=== PATIENT | male | born 1980 | race Caucasian/White ===

== ENCOUNTER 2017-04-07 10:41 | Inpatient (IN) | payer OTHER ==
[2017-04-07] MEDS ORDERED: NS 1,000 ML IV ONE ×2 (11:40→14:45)
[2017-04-07 11:44] LABS: % IMMATURE GRANULYOCYTES 0.1 % (0.0-1.1); ABSOLUTE IMMATURE GRANULOCYTES 0.01 10^3/uL (0.00-0.10); ADD DIFF? NO; ADD MORPH? NO; ADD SCAN? NO; ATYPICAL LYMPHOCYTE FLAG 0 (0-99); FRAGMENT RBC FLAG 0 (0-99); HEMATOCRIT 42.5 % (40.0-51.0); HEMOGLOBIN 14.9 g/dL (13.7-17.5); LEFT SHIFT FLG 0 (0-99); LIPEMIA HEMOLYSIS FLAG 90 (0-99); MEAN CELL HEMOGLOBIN 28.3 pg (27.9-34.1); MEAN CELL HEMOGLOBIN CONCENTR. 35.1 g/dL (32.4-36.7); MEAN CELL VOLUME 80.6 fL (81.5-99.8); MEAN PLATELET VOLUME 8.9 fL (8.7-11.7); PLATELET CLUMPS FLAG 0 (0-99); PLATELET COUNT 297 10^3/uL (150-400); RED BLOOD CELL COUNT 5.27 10^6/uL (4.40-6.38); RED CELL DISTRIBUTION WIDTH 13.2 % (11.5-15.2)
[2017-04-07 12:06] LABS: ANION GAP 15 mEq/L (8-16); CALCIUM 9.5 mg/dL (8.5-10.4); CARBON DIOXIDE 29 mEq/l (22-31); CHLORIDE 98 mEq/L (97-110); CREATININE 1.2 mg/dL (0.7-1.3); GLOMERULAR FILTRATION RATE > 60; GLUCOSE 88 mg/dL (70-100); POTASSIUM 4.5 mEq/L (3.5-5.2); SODIUM 142 mEq/L (134-144)
[2017-04-07 12:18] LABS: WBC, SYNOVIAL FLUID 89896 /mm3 (0-150)
[2017-04-07] MEDS ORDERED: VANCOMYCIN HCL/NORMAL SALINE 250 ML IV ONE (12:52)
[2017-04-07 13:04] LABS: CRYSTALS, SYNOVIAL FLUID NONE SEEN (NONE SEEN)
[2017-04-07 13:40] LABS: GLUCOSE, SYNOVIAL FLUID 62 mg/dL (55-113)
--- NOTE | 2017-04-07 13:51 | EDPHY ---
H & P Stated Complaint: Left knee swelling, poss infection, recent surgery - 03/19/17 Time Seen by Provider: 04/07/17 10:58 HPI/ROS: Chief complaint: Left knee swelling History of present illness: This is a 36-year-old male who presents to the emergency department for evaluation of left knee swelling. Patient has a significant recent history in regards to his left knee. In November of this year he fell and fractured his tibia and required surgery to repair it. The surgery was performed at [facility] by [facility], Dr. Monique. A few weeks ago he developed a wounds on the knee and was diagnosed with abscesses. These were incised and drained by his physician. Cultures were obtained which showed Staph Aureus. He was started on Keflex. He has completed the course of Keflex. Since then he has had increasing pain and swelling in his knee. It makes it difficult to move the knee. In addition preceding the onset of the pain and swelling in the knee he had fevers up to 102 degrees F. Review of systems: A 10 point review of systems was obtained and other than described above was negative - Personal History Current Tetanus Diphtheria and Acellular Pertussis (TDAP): Yes - Medical/Surgical History Hx Asthma: No Hx Chronic Respiratory Disease: No Hx Diabetes: No Hx Cardiac Disease: No Hx Renal Disease: No Hx Cirrhosis: No Hx Alcoholism: No Hx HIV/AIDS: No Hx Splenectomy or Spleen Trauma: No Other PMH: 3 x left knee surgeries. - Social History Smoking Status: Never smoked - Physical Exam Exam: General Appearance: Alert, nontoxic. Eyes: Pupils equal and round no pallor or injection. ENT, Mouth: Mucous membranes moist. Respiratory: There are no retractions, lungs are clear to auscultation. Cardiovascular: Regular rate and rhythm. Gastrointestinal: Abdomen is soft and non tender, no masses, bowel sounds normal. Neurological: Alert and oriented. Strength and sensation intact and symmetrical. Skin: Warm and dry, no rashes. Musculoskeletal: Neck is supple non tender. Left knee is erythematous with edema. It is warm to touch. Patient has decreased range of motion with associated pain. Psychiatric: Patient is oriented X 3, there is no agitation. Constitutional: Initial Vital Signs Temperature (C) 36.6 C 04/07/17 10:43 Heart Rate 107 H 04/07/17 10:43 Respiratory Rate 16 04/07/17 10:43 Blood Pressure 128/72 H 04/07/17 10:43 O2 Sat (%) 97 04/07/17 10:43 O2 Delivery Mode Room Air Allergies/Adverse Reactions: No Known Allergies Allergy (Unverified 04/07/17 10:47) Home Medications: Medication Instructions Recorded NK [No Known Home Meds] 04/07/17 Medical Decision Making ED Course/Re-evaluation: Patient is discussed with my secondary supervising physician Dr. Jeny Daly. Patient presents to the emergency department reporting fevers this weekend of 102 degrees F, now with redness, swelling and warmth to his left knee. Arthrocentesis was obtained and concerning for septic arthritis. I have discussed transferring the patient back to [facility] to the care of his orthopedic surgeon Dr. Monique. He states he does not want to continue care with Dr. Monique. He states to me that he wants to fire Dr. Monique as he does not believe he has been cared for properly. He is asking if he can stay here. I have consulted with our orthopedic group Dr. Ponce. He has kindly agreed to see this patient. He will take the patient to the operating room this afternoon for washout. The patient will be admitted to the hospitalist service, Dr. Reuben Thompson for further evaluation and care. Dr. Terry Wong of Infectious Disease is consulted, he recommends starting patient on vancomycin and he will see the patient. The plan has been discussed with the patient who voiced understanding and agreement with it. Differential Diagnosis: Included but not limited to cellulitis, bursitis, septic arthritis, gouty arthritis, displacement of hardware, traumatic injury - Data Points Laboratory Results: Laboratory Results 04/07/17 11:36 04/07/17 11:36 04/07/17 04/07/17 04/07/17 11:36 11:36 11:36 WBC 7.25 10^3/uL 10^3/uL (3.80-9.50) RBC 5.27 10^6/uL 10^6/uL (4.40-6.38) Hgb 14.9 g/dL g/dL (13.7-17.5) Hct 42.5 % % (40.0-51.0) MCV 80.6 fL L fL (81.5-99.8) MCH 28.3 pg pg (27.9-34.1) MCHC 35.1 g/dL g/dL (32.4-36.7) RDW 13.2 % % (11.5-15.2) Plt Count 297 10^3/uL 10^3/uL (150-400) MPV 8.9 fL fL (8.7-11.7) Neut % (Auto) 73.4 % % (39.3-74.2) Lymph % (Auto) 13.0 % L % (15.0-45.0) Todd % (Auto) 12.1 % % (4.5-13.0) Eos % (Auto) 0.8 % % (0.6-7.6) Baso % (Auto) 0.6 % % (0.3-1.7) Nucleat RBC Rel Count 0.0 % % (0.0-0.2) Absolute Neuts (auto) 5.32 10^3/uL 10^3/uL (1.70-6.50) Absolute Lymphs (auto) 0.94 10^3/uL L 10^3/uL (1.00-3.00) Absolute Monos (auto) 0.88 10^3/uL H 10^3/uL (0.30-0.80) Absolute Eos (auto) 0.06 10^3/uL 10^3/uL (0.03-0.40) Absolute Basos (auto) 0.04 10^3/uL 10^3/uL (0.02-0.10) Absolute Nucleated RBC 0.00 10^3/uL 10^3/uL (0-0.01) Immature Gran % 0.1 % % (0.0-1.1) Immature Gran # 0.01 10^3/uL 10^3/uL (0.00-0.10) VBG Lactic Acid 1.5 mmol/L mmol/L (0.7-2.1) Sodium 142 mEq/L mEq/L (134-144) Potassium 4.5 mEq/L mEq/L (3.5-5.2) Chloride 98 mEq/L mEq/L (97-110) Carbon Dioxide 29 mEq/l mEq/l (22-31) Anion Gap 15 mEq/L mEq/L (8-16) BUN 17 mg/dL mg/dL (7-23) Creatinine 1.2 mg/dL mg/dL (0.7-1.3) Estimated GFR > 60 Glucose 88 mg/dL mg/dL (70-100) Calcium 9.5 mg/dL mg/dL (8.5-10.4) Fl Pathologist Review Fluid Total Protein Synovial Source Synovial Color Synovial Appearance Synovial WBC Synovial RBC Synovial Neutrophils Synovial Lymphocytes Synovial Crystals Synovial Glucose 04/07/17 11:05 WBC RBC Hgb Hct MCV MCH MCHC RDW Plt Count MPV Neut % (Auto) Lymph % (Auto) Todd % (Auto) Eos % (Auto) Baso % (Auto) Nucleat RBC Rel Count Absolute Neuts (auto) Absolute Lymphs (auto) Absolute Monos (auto) Absolute Eos (auto) Absolute Basos (auto) Absolute Nucleated RBC Immature Gran % Immature Gran # VBG Lactic Acid Sodium Potassium Chloride Carbon Dioxide Anion Gap BUN Creatinine Estimated GFR Glucose Calcium Fl Pathologist Review Pending Fluid Total Protein 5.4 g/dL g/dL Synovial Source SYNOVIAL Synovial Color YELLOW H (CLS/PALE YL) Synovial Appearance CLOUDY H (CLEAR) Synovial WBC 49319 /mm3 H /mm3 (0-150) Synovial RBC 67062 /mm3 H /mm3 (0-0) Synovial Neutrophils 98 % H % (0-25) Synovial Lymphocytes 2 % % Synovial Crystals NONE SEEN (NONE SEEN) Synovial Glucose 62 mg/dL mg/dL (55-113) Microbiology Results: MICROBIOLOGY 04/07/17 11:05 Knee - Aspirate Gram Stain - Final Medications Given: Vancomycin/Sodium Chloride (Vancomycin 1 Gm (Premix)) 250 mls @ 250 mls/hr IV EDNOW ONE PRN Reason: Protocol Stop: 04/07/17 13:51 Last Admin: 04/07/17 13:29 Dose: 250 mls Discontinued Medications Sodium Chloride (Ns) 1,000 mls @ 0 mls/hr IV ONCE ONE; Wide Open PRN Reason: Protocol Stop: 04/07/17 11:41 Last Admin: 04/07/17 11:42 Dose: 1,000 mls Departure - Departure Disposition: [facility] Inpatient Acute Clinical Impression: Septic arthritis Qualifiers: Septic arthritis location: knee Septic arthritis organism: due to unspecified organism Laterality: left Qualified Code(s): M00.9 - Pyogenic arthritis, unspecified Condition: Fair Referrals: NONE *PRIMARY CARE P,. [Primary Care Provider] - As per Instructions
[2017-04-07] MEDS ORDERED: HYDROmorphone HCL/NS/PF 0.4 MG/2 ML SYR IVP PRN (14:28)
[2017-04-07] MEDS ORDERED: ONDANSETRON 4 MG/2 ML VIAL IVP PRN ×2 (14:28→19:10)
[2017-04-07] MEDS ORDERED: ONDANSETRON DISINTEGRATING 4 MG TAB PO PRN (14:28)
[2017-04-07] MEDS ORDERED: NS 1,000 ML IV SCH (14:30)
[2017-04-07 14:37] LABS: HEMATOCRIT 43.2 % (40.0-51.0)
[2017-04-07] MEDS ORDERED: HYDROmorphONE/DILAUDID 1 MG/ML INJ ONE ×2 (14:44→20:08)
[2017-04-07] MEDS ORDERED: HYDROmorphONE/DILAUDID 2 MG/ML INJ IVP ONE (14:45)
--- NOTE | 2017-04-07 15:35 | GHP ---
[f rep st] HISTORY AND PHYSICAL DATE OF ADMISSION: 04/07/2017 HISTORY OF PRESENT ILLNESS: The patient is a 36-year-old gentleman with a history of tib-fib fractur e requiring operative repair in November of this year. Since then he has had a number of skin abscesses along his lateral incision. They were treated with incision and drainage. Then ultimately he went t o the operating room about 2 weeks ago for a wash out. He received a dose of what sounds like cefazo neva and then a course of Keflex. Micro from that time demonstrated a few Staph aureus that were not consistent with MRSA. The patient has had a chronically swollen left knee since then, but over the w eekend became more swollen with resistance to movement. He had a fever of 101 two days prior to admi ssion and 102 last evening. No drenching night sweats. He does not use IV drugs. He has had no armin h on the skin other than some adhesive-related stuff around his surgical site. No lightheadedness, n o dizziness, no confusion. REVIEW OF SYSTEMS: Complete 10-point review of systems conducted. PAST MEDICAL HISTORY: Tib-fib fracture. ALLERGIES: None. HOME MEDICATIONS: None. He had been on pain pills for about 3 months, and they were stopped. He lazaro d been taking an herbal supplement that supposedly was an opioid agonist. SOCIAL HISTORY: Minimal alcohol. He works in the cannabis extraction industry. He had smoked for a little bit but quit smoking. FAMILY HISTORY: Reviewed and unremarkable. PHYSICAL EXAMINATION: VITAL SIGNS: Temp 36.6, blood pressure 128/72, pulse 107, breathing 16 times a minute, 97 on room air. GENERAL: In no acute distress. HEENT: Sclerae anicteric. Oropharynx cl ear. Mucous membranes are moist. NECK: Supple without lymphadenopathy or JVD. LUNGS: Clear to au scultation bilaterally. HEART: S1, S2. Tachycardic. ABDOMEN: Soft, nontender, nondistended. LOW ER EXTREMITIES: Left lower extremity shows a large joint knee effusion that is warm. It is difficul t to tell the color as there is iodine all over his lateral incision. It is clean, dry, and intact. It does not necessarily look infected. You can tell it has been incised a couple of times. Below t he knee there is no edema. His other knee is normal. NEUROLOGIC: Nonfocal. LABORATORY/IMAGING DATA: White count 7.2, hematocrit 42. Platelets are 297,000. Venous lactate is 1.5. Sodium 142, potassium 4.5, chloride 98, bicarb 19, BUN 17, creatinine 1.2. Glucose 88. Synovi al fluid is yellow, cloudy, 89,896 white cells, 16,000 red cells, 98% neutrophils. Glucose is 62. G raquel stain of that shows polymorphonucleocytes but no organisms. Knee film interpreted by me shows so ft tissue swelling with joint effusion with as well as plate and screw fixation of the proximal tibia . Old fracture lines are visible. I discussed the case with Ruben Reyes and Terry Wong. ASSESSMENT/PLAN: A 36-year-old gentleman with postoperative septic arthritis. 1. Septic arthritis. Based on his white cell count and clinical scenario, this is consistent with s eptic arthritis. The patient received vancomycin in the emergency department. I will leave the madelyn piedad of antibiotic choices to Dr. Wong. I suspect he may be able to get away with cefazolin or we m ay treat with vancomycin until we know for certain that this isolate is methicillin-resistant Staphyl ococcus aureus. 2. He is planned for washout with Dr. King Ponce this evening at 6. I will make him n.p.o. 3. Pain. Scheduled Tylenol p.r.n., Dilaudid, and oxycodone. I think this patient would do well to not be discharged on a lot of pain medicines. 4. Microcytosis. Send iron studies. 5. Question osteomyelitis. Patient has hardware and the sort of smoldering infection for a few zen hs. I have concern for osteomyelitis. I have sent a sedimentation rate and ESR for the morning. 6. Status: Inpatient status. /[id number]/MODL
[2017-04-07] MEDS: oxyCODONE IR 5 MG TAB PO PRN (16:36)
--- NOTE | 2017-04-07 16:46 | PDMN ---
Medical Necessity Medical necessity: M605 septic arthritis- suspected or proven septic arthritis 3 days
--- NOTE | 2017-04-07 17:46 | GCON ---
[f rep st] CONSULTATION INFECTIOUS DISEASES CONSULTATION DATE OF CONSULTATION: 04/07/2017 REFERRING PHYSICIAN: TISHA Montelongo REASON FOR CONSULTATION: Postoperative infection, left knee. HISTORY OF PRESENT ILLNESS: Patient is a 36-year-old male with a past medical history of a tibia/fibula fracture in November when he came off a skateboard. This was initially managed with external fixation and was comminuted. In December, he underwent ORIF of the fracture. Postoperatively, the patient describes developing small skin abscesses along the lateral incision line. These were felt to be compatible with stitch abscesses. He was treated with cephalexin on 2 occasions. Given the persistent nature of these, he returned to the operating room in early March for incision and drainage. He does not describe having involvement of his joint at the time of that procedure. Cultures were obtained operatively and showed growth of MSSA. Patient subsequently completed a course of oral cephalexin. Patient notes over the last 2 days, that he developed fever with some chills, with his temperature reaching as high as 102. He then developed significant swelling of his left knee and inability to bear weight. He describes having some old coagulated blood from the lateral incision, but no purulence. Given the fever and progressive knee symptoms, he presented to the emergency department for further evaluation. His prior surgery was done through [facility]. He was given a dose of vancomycin in the emergency department. Arthrocentesis was performed with synovial fluid showing 89,896 white blood cells with 16,630 red blood cells with 98% neutrophils. Gram stain of the fluid was negative. Two sets of blood cultures were obtained and are pending. Patient was given a dose of vancomycin in the emergency department. I am now asked to assist in his ongoing management. PAST MEDICAL HISTORY: As above, otherwise unremarkable except for metacarpal fracture also sustained in skateboard injury. PAST SURGICAL HISTORY: As above. CURRENT MEDICATIONS: Status post vancomycin 1 g IV x1, Lovenox 40 mg subcu daily, Zofran as needed, OxyIR as needed, hydromorphone as needed. ALLERGIES: No known drug allergies. SOCIAL HISTORY: Patient smokes 3 cigarettes per day and has been trying to quit. Has been drinking approximately 1 beer per week. No drug use history. He works in [employer]. There is a pet cat at home, which has not had contact with his surgical sites. FAMILY HISTORY: Noncontributory. REVIEW OF SYSTEMS: Outside that noted in the HPI, the remainder 10 system review is unremarkable. PHYSICAL EXAMINATION: VITAL SIGNS: Temperature 37.5, heart rate 100, respiratory rate 16, blood pressure 128/77, oxygen saturation 93% on room air. GENERAL: Patient is well nourished, well developed with mild rigors present. HEENT: There is no scleral icterus, conjunctival injection, or conjunctival petechiae. Oropharynx shows dry mucous membranes. Dentition is in good repair. There is no nasal discharge. There is no tenderness over the frontal, maxillary, or mastoid area. NECK: Supple without lymphadenopathy or palpable thyromegaly. CHEST: Clear to auscultation bilaterally without adventitious sounds. Respiratory effort is normal. CARDIOVASCULAR: Tachycardic without murmurs, gallops, or rubs. ABDOMEN: Soft, nontender, nondistended. There is no palpable organomegaly. Bowel sounds are present. MUSCULOSKELETAL: Left knee is edematous with palpable knee effusion with mild overlying warmth and tenderness which limits range of motion; lateral incision has 2-3 small erythematous areas without purulent drainage. The medial incision is well healed. SKIN: There are no stigmata of endocarditis. No rashes other than that described under knee exam. LYMPHATICS: No palpable left inguinal nodes or lymphangitis. No supraclavicular or cervical nodes palpable. NEUROLOGIC: Patient is alert and interacts appropriately with examiner. Cranial nerves 2- 12 are grossly intact. Sensation is grossly intact. Muscle tone and bulk are normal. LABORATORY DATA: White blood cell count 7.3, hematocrit 42.5, platelets 297, neutrophils 73%. Serum creatinine is 1.2. CRP is 193.8. Venous lactate is 1.5. Synovial fluid as outlined above; no crystals were seen. Blood cultures x2 sets are pending. IMAGING DATA: X-ray of the knee shows presence of soft tissue swelling and joint effusion; fixation of hardware present along the tibial plateau with irregular contour present. IMPRESSION: Postoperative infection of the left knee: Recent culture showed growth of methicillin-sensitive Staphylococcus aureus, which likely will be the etiologic pathogen. Synovial fluid findings are consistent with septic arthritis. I am concerned hardware also is affected given the chronicity of his symptoms and failure to resolve with prior incision and drainage and oral antibiotic therapy. Ultimately, this may require hardware removal for resolution. Concomitant bacteremia also potentially present in the setting of fever and chills. RECOMMENDATIONS: 1. Agree with plans for incision and drainage. 2. Will review with Orthopedic Surgery regarding operative plans. 3. Cefazolin 2 g IV q.8 hours to begin after cultures obtained in OR (has received vancomycin). 4. Follow blood cultures and synovial fluid, as well as operative cultures as available. 5. Clinical findings and plan were discussed with patient today. Thank you for this consultation. We will continue to follow patient with you. /[id number]/MODL MTDD
[2017-04-07] MEDS ORDERED: MIDAZOLAM 2 MG/2 ML VIAL IVP ONE (17:59)
--- NOTE | 2017-04-07 18:02 | PDANEPAE ---
ANE History of Present Illness left knee infection ANE Past Medical History - Pulmonary History Hx Oxygen in Use at Home: No Hx Sleep Apnea: No Sleep Apnea Screening Result - Last Documented: Negative - Endocrine History Hx Diabetes: No - Chronic Pain History Chronic Pain: No ANE Review of Systems Review of Systems: ANE Patient History - Allergies Allergies/Adverse Reactions: No Known Allergies Allergy (Unverified 04/07/17 10:47) - Home Medications Home Medications: NK [No Known Home Meds] 04/07/17 [Last Taken Unknown] - NPO status NPO Since - Liquids (Date): 04/07/17 NPO Since - Liquids (Time): 11:00 NPO Since - Solids (Date): 04/07/17 NPO Since - Solids (Time): 09:00 - Smoking Hx Smoking Status: Never smoked ANE Labs/Vital Signs - Labs Result Diagrams: 04/07/17 11:36 04/07/17 11:36 - Vital Signs Blood Pressure: 136/79 Heart Rate: 102 Respiratory Rate: 18 O2 Sat (%): 92 Height: 185.42 cm Weight: 79.379 kg ANE Physical Exam - Airway Neck exam: FROM Mallampati Score: Class 1 Mouth exam: normal dental/mouth exam - Pulmonary Pulmonary: no respiratory distress - Cardiovascular Cardiovascular: regular rate and rhythym - ASA Status ASA Status: II ANE Anesthesia Plan Anesthesia Plan: general endotracheal anesthesia
[2017-04-07] MEDS ORDERED: ROPIVACAINE HCL 20 MG/10 ML INJ EP ONE ×2 (18:15→18:51)
[2017-04-07] MEDS ORDERED: ROCURONIUM 50 MG/5 ML VIAL ONE (18:32)
[2017-04-07] MEDS ORDERED: PROPOFOL 200 MG/20 ML VIAL ONE (18:33)
[2017-04-07] MEDS ORDERED: fentaNYL 100 MCG/2 ML INJ ONE ×5 (18:33→21:06)
[2017-04-07] MEDS ORDERED: MIDAZOLAM 2 MG/2 ML VIAL ONE (18:42)
[2017-04-07] MEDS ORDERED: BACITRACIN 50,000 UNITS/10 ML SYR IRR ONE ×3 (18:54→19:34)
[2017-04-07] MEDS ORDERED: POLYMYXIN B SULFATE 500,000 UNIT/10 ML SYR IRR ONE ×3 (18:54→19:34)
[2017-04-07] MEDS ORDERED: HYDROCODONE/APAP 5/325 TAB PO PRN (19:10)
[2017-04-07] MEDS ORDERED: MEPERIDINE 25 MG/ML SYR IVP PRN (19:10)
[2017-04-07] MEDS ORDERED: DEXAMETHASONE 4 MG/ML VIAL IVP PRN (19:10)
[2017-04-07] MEDS ORDERED: NALOXONE HCL 0.4 MG/ML INJ IVP PRN (19:10)
[2017-04-07 20:03] LABS: CRYSTALS, SYNOVIAL FLUID NONE SEEN (NONE SEEN)
[2017-04-07] MEDS ORDERED: MEPERIDINE 25 MG/ML SYR ONE (20:08)
--- NOTE | 2017-04-07 20:08 | POSTANESTH ---
Post Anesthetic Evaluation Cardiovascular Status: Normal, Stable Respiratory Status: Normal, Stable Level of Consciousness/Mental Status: Can Participate in Eval Pain Control: Adequate, Prn Tx Ordered Nausea/Vomiting Control: Adequate, Prn Tx Ordered Complications Possibly Related to Anesthesia: None Noted
[2017-04-07] MEDS: HYDROmorphONE/DILAUDID 1 MG/ML INJ IVP PRN ×3 (20:12→20:36)
[2017-04-07] MEDS ORDERED: HYDROmorphONE/DILAUDID 2 MG TAB PO PRN (20:14)
[2017-04-07] MEDS ORDERED: D5W 1/2 NS W/ 20 KCl/L 1,000 ML IV SCH (20:15)
[2017-04-07] MEDS: fentaNYL 100 MCG/2 ML INJ IVP PRN ×3 (20:18→21:07)
[2017-04-07] MEDS ORDERED: HYDROCODONE/APAP 5/325 TAB ONE (20:51)
[2017-04-07] MEDS ORDERED: DIAZEPAM 5 MG TAB ONE (20:51)
[2017-04-07] MEDS: DIAZEPAM 5 MG TAB PO PRN (20:52)
--- NOTE | 2017-04-07 21:11 | GCON ---
[f rep st] CONSULTATION ORTHOPEDIC ER CONSULTATION DATE OF CONSULTATION: 04/07/2017 HISTORY OF PRESENT ILLNESS: Please see details of ER H and P and admitting H and P. A 36-year-old lópez muro, who was on a single-wheel hover board back in December, fell on a straight leg, was triaged to the emergency room at [place], and then transferred to [facility] for management of what sounds like a ti bial plateau fracture. He states that he was in an ex fix for a week and then definitive treatment w ith medial and lateral plates. He states that he never had full motion. He has had, about 3-4 weeks postop, his lateral hockey-stick incision over the proximal tibia had some superficial abscesses. Lea butler also had a problem with arthrofibrosis. His last procedure was about 2-[address] Scott Sutherland, who did what sounds like a wound debridement on the lateral side, as well as manipulation under anesthesia. He did not perform a knee arthroscopy at the time. Over the last 3-4 days, he lazaro s had increased pain and swelling of the left knee. He is now seen in our [facility] ER. PHYSICAL EXAMINATION: Pertinent orthopedic examination reveals a well-appearing male. He has about 10 degrees of knee extension and about 80 degrees of knee flexion, it is painful. He has a moderate effusion. There are nylon suture lines in the lateral incision. The medial incision is well healed and closed. DIAGNOSTIC STUDIES: X-rays taken show medial and lateral plates. There is some erosion of bone, a l ittle bit of arthritis. The ER tapped the knee with a reported 90,000, or close to 90,000 synovial fluid in about 5 cc. IMPRESSION/RECOMMENDATION: Concern for chronic joint or septic joint, in the setting of open reducti on internal fixation less than 3 months ago. I would like to consider him for an irrigation, debride ment, manipulation, and lysis of adhesions. I would like to retain the hardware for now. Infectious disease consultation. Hospitalist admission. To operating room mojgan. /[id number]/MODL
[2017-04-07] MEDS: ACETAMINOPHEN 500 MG TAB PO SCH (22:50)
[2017-04-07] MEDS: ceFAZolin 2 GM/DEXTROSE 100 ML IV SCH (22:50)
[2017-04-08] MEDS: HYDROmorphONE/DILAUDID 1 MG/ML INJ IVP PRN ×2 (00:45→04:50)
--- NOTE | 2017-04-08 05:03 | GOP ---
[f rep st] OPERATIVE REPORT DATE OF OPERATION: 04/07/2017 SURGEON: King Ponce MD PREOPERATIVE DIAGNOSIS: 1. Left knee septic joint. 2. History of bicondylar tibial plateau fracture status post ORIF at [facility]. 3. History of lateral wound infection. 4. History of left knee arthrofibrosis, status post ORIF bicondylar tibial plateau. POSTOPERATIVE DIAGNOSIS: PROCEDURE PERFORMED: FINDINGS: ESTIMATED BLOOD LOSS: 100 cc. INDICATIONS: Please see details of ER H and P. 36-year-old male who underwent, 3 months ago, bicond ylar tibial plateau ORIF. Then, most recently, about 2-3 weeks ago, with a wound debridement local o n the lateral wound, on the tibia, as well as manipulation under anesthesia. He presents for treatme nt of a septic joint and arthrofibrosis. DESCRIPTION OF PROCEDURE: The patient was identified in the preoperative holding area. Consent late rality and preoperative antibiotics were confirmed delivered. All questions were answered. His left knee was identified and examined at 10 through 80 degrees of knee range of motion. The right knee h ad full extension, almost 3 degrees hyperextension to 150 degrees of knee flexion. The patient was brought to the operating room. General anesthesia, femoral nerve block. No tourniqu et was used. The left lower extremity was prepped and draped in the usual sterile fashion. Surgical timeout was performed. The nylon sutures were removed. There were small punctate ulcerations, but there was no drainage fro m the lateral wound and it looks like at least it was 90% sealed up. We went ahead and made a standa rd two portal technique. We had about 5 cc of purulent fluid. We used the obturator and cannula to do a medial and lateral gutter sweep in a superior suprapatellar pouch sweep to get some space in the re. We then used 15 L of fluid for a washout. We did an extensive synovectomy of the anterior, medi al, and lateral compartments. We developed an anterior interval space. We did some meniscal trimmin g. The medial compartment actually looked a little bit better than the lateral compartment. The tib ial surface on the medial compartment looked great. The tibial surface on the lateral compartment, m ostly anterior, was cobblestoned, grade 3. The ACL seemed to be intact. The ligamentum mucosum was scarred onto the ACL, but we developed this plane at the intercondylar notch. Extensive scarring fro m the fat pad to the gutters. We took our time to develop the gutters, develop the anterior interval , and develop the medial gutter. We did push our obturator into the Gillquist views to open up some space in the intercondylar notch. Partial medial and lateral meniscectomies were performed. The annita ts looked stable. Most of the meniscal fraying was on the inner 3rd of both menisci. Less than 10% of each menisci were removed. We then spent about 5 minutes manipulating the knee. The final result was about 5 degrees of extension, which improved by 5 from preop to approximately 130 degrees of kne e flexion. We did not hear any loud pops. There was no evidence of bone breaking or patellar tendon rupture. The wounds were closed with a 3-0 nylon. 10 cc of 0.2% ropivacaine were injected into the joint with 5 cc in each portal site. A drain was applied prior to wound closure. A #7 JINA silicone through a s uperomedial portal. Sterile dressing was applied with Xeroform, 4 x 4s, ABD, Webril, and a sterile Lorenzo. COMPLICATIONS: None. TOURNIQUET: 0. DISPOSITION: Extubated, awake to the PACU in stable condition. /[id number]/MODL
[2017-04-08 05:55] LABS: % IMMATURE GRANULYOCYTES 0.3 % (0.0-1.1); ABSOLUTE IMMATURE GRANULOCYTES 0.02 10^3/uL (0.00-0.10); ADD DIFF? NO; ADD MORPH? NO; ADD SCAN? NO; ATYPICAL LYMPHOCYTE FLAG 10 (0-99); FRAGMENT RBC FLAG 0 (0-99); HEMATOCRIT 35.2 % (40.0-51.0); HEMOGLOBIN 12.1 g/dL (13.7-17.5); LEFT SHIFT FLG 0 (0-99); LIPEMIA HEMOLYSIS FLAG 90 (0-99); MEAN CELL HEMOGLOBIN 27.8 pg (27.9-34.1); MEAN CELL HEMOGLOBIN CONCENTR. 34.4 g/dL (32.4-36.7); MEAN CELL VOLUME 80.7 fL (81.5-99.8); MEAN PLATELET VOLUME 9.5 fL (8.7-11.7); PLATELET CLUMPS FLAG 0 (0-99); PLATELET COUNT 264 10^3/uL (150-400); RED BLOOD CELL COUNT 4.36 10^6/uL (4.40-6.38); RED CELL DISTRIBUTION WIDTH 13.1 % (11.5-15.2)
[2017-04-08] MEDS: ACETAMINOPHEN 500 MG TAB PO SCH ×3 (06:01→21:23)
[2017-04-08] MEDS: ceFAZolin 2 GM/DEXTROSE 100 ML IV SCH ×3 (06:02→21:41)
[2017-04-08 06:07] LABS: ANION GAP 11 mEq/L (8-16); CALCIUM 8.6 mg/dL (8.5-10.4); CARBON DIOXIDE 26 mEq/l (22-31); CHLORIDE 100 mEq/L (97-110); CREATININE 0.8 mg/dL (0.7-1.3); GLOMERULAR FILTRATION RATE > 60; GLUCOSE 184 mg/dL (70-100); POTASSIUM 5.1 mEq/L (3.5-5.2); SODIUM 137 mEq/L (134-144)
[2017-04-08 06:16] LABS: % SATURATION 5 % (20-55); TOTAL IRON BINDING CAPACITY 245 ug/dL (260-490)
[2017-04-08] MEDS: oxyCODONE IR 5 MG TAB PO PRN ×2 (08:16→11:59)
[2017-04-08] MEDS: ENOXAPARIN 40 MG/0.4 ML SYR SC SCH (08:16)
--- NOTE | 2017-04-08 09:58 | HOSPPROG ---
Hospitalist Progress Note Assessment/Plan: Patient is a 36-year-old male with a hx of a tib/ fib fx this year requiring surgery. After surgery he has had a number of skin abscesses along his lateral incision that were I & D. He went to the operating room approximately 2 weeks ago for washout. He was treated with IV antibiotics and then oral Keflex. Today is my 1st encounter with the patient. Chart reviewed. Evaluated the patient w Dr Bar. * left knee septic joint / MSSA -status post washout with Dr. Ponce -on cefazolin -has hardware in place * pain due to the above -continue pain medications and scheduled tylenol -dc iv pain medications * iron deficiency anemia -will need to get further workup in the outpatient setting -will have his stools Hemoccult *Nicotine dependence: patch ordered *Plan: cont care as above Subjective: Robi says his pain is better after getting the knee washed out. Objective: Vital Signs Temp Pulse Resp BP Pulse Ox 36.4 C 74 16 102/58 L 94 04/08/17 07:33 04/08/17 07:33 04/08/17 07:33 04/08/17 07:33 04/08/17 07:33 Microbiology 04/07/17 19:01 Gram Stain - Final Synovial Fluid - Aspirate Laboratory Results 04/08/17 04:30 04/08/17 04:30 04/07/17 04/08/17 04/09/17 05:59 05:59 05:59 Intake Total 4177 Output Total 2265 675 Balance 1912 -675 - Physical Exam Constitutional: no apparent distress, appears nourished, not in pain Eyes: PERRL Ears, Nose, Mouth, Throat: hearing normal Cardiovascular: regular rate and rhythym Respiratory: no respiratory distress, no rales or rhonchi Skin: warm, other (left knee with swelling, some redness/ has a JINA drain w bloody drainage) Musculoskeletal: joint tenderness (left knee) Neurologic: AAOx3 Psychiatric: interacting appropriately, not anxious ICD10 Worksheet Patient Problems: Problems Problem Status Onset Septic arthritis Acute
--- NOTE | 2017-04-08 10:26 | PCMIDPN ---
Assessment/Plan: Assessment/Plan: 1. Left knee septic arthritis secondary to MSSA: - previous cx with MSSa. operative cx now with Staph aureus as well - Currently on Ancef therapy. - creatinine stable - blood cx pending -recent tib fib # in November, s/p ORIF in December. Hx stitch abscesses. ?seeding of HW - care coordinated with hospitalist team, Rn. Meds ancef 2g q8- Subjective: afebrile. feels much better today than previously . far less pain overall. drain in place. denies sob, diarrhea. Objective: Vital Signs Temp Pulse Resp BP Pulse Ox 36.4 C 74 16 102/58 L 94 04/08/17 07:33 04/08/17 07:33 04/08/17 07:33 04/08/17 07:33 04/08/17 07:33 Microbiology 04/07/17 19:01 Gram Stain - Final Synovial Fluid - Aspirate Laboratory Results 04/08/17 04:30 04/08/17 04:30 04/07/17 04/08/17 04/09/17 05:59 05:59 05:59 Intake Total 4177 Output Total 2265 675 Balance 1912 -675 ESR 35 MM/HR (0-15) H 04/07/17 11:36 C-Reactive Protein 193.8 mg/L (<10.0) H 04/07/17 11:36 - Physical Exam General Appearance: alert, no apparent distress Respiratory: lungs clear Cardiac/Chest: regular rate, rhythm Extremities: swelling (Left knee) Abdomen: normal bowel sounds, non-tender, soft, No distended Skin: No erythema (left knee swelling with arthoscopic sites noted. warmth. no erythema. drain in place) ICD10 Worksheet Patient Problems: Problems Problem Status Onset Septic arthritis Acute
[2017-04-08] MEDS: NICOTINE 14 MG/24 HR PATCH TD SCH (11:56)
--- NOTE | 2017-04-08 14:14 | ASMTCMCOM ---
CM Note CM Note Notes: Chart reviewed. Patient s/p wash out of knee. Per PT and OT he is cleared and referred to outpatient therapy. No needs currently identified. CM available should needs arise. Date Signed: 04/08/2017 02:13 PM Electronically Signed By:Caitlyn Eagle RN
[2017-04-08] MEDS ORDERED: ENOXAPARIN 40 MG/0.4 ML SYR SC SCH (14:28)
[2017-04-08] MEDS ORDERED: CEPACOL LOZENGE PO PRN (14:59)
[2017-04-08] MEDS: HYDROmorphONE/DILAUDID 4 MG TAB PO PRN ×2 (17:18→21:24)
[2017-04-08] MEDS: DIAZEPAM 5 MG TAB PO PRN (22:40)
--- NOTE | 2017-04-08 23:14 | SOAPPROG ---
SOAP Progress Note Assessment/Plan: Assessment: 36 yo male POD#1 s/p left knee irrigation and debridement due to left septic knee. -pain management per primary -antibiotics per ID -LLE: wbat, rom as tolerated -dispo: per pt/primary -ortho to follow. Plan: 04/08/17 23:18 Subjective: Robi denies any issues over night, reports he slept well, he has "felt the best he has had in the last 3 months just since the surgery." and "wishes he had found us sooner." patient denies any numbness/tingling, denies fevers or chills reports he has been doing a little flexion/extension of the knee as tolerated by pain, noticed a little increase in red bloody drainage, but no pus. Objective: LLE: dressings c/d/i, JINA drain in place with minimal sangeounous output, full ankle rom, nvid, pt/dp 2+ Vital Signs Temp Pulse Resp BP Pulse Ox 36.8 C 87 16 118/68 96 04/08/17 19:37 04/08/17 19:37 04/08/17 19:37 04/08/17 19:37 04/08/17 19:37 Microbiology 04/07/17 19:01 Gram Stain - Final Synovial Fluid - Aspirate 04/07/17 19:01 Mycobacterial Smear (ULYSSES) - Final Synovial Fluid - Aspirate Laboratory Results 04/08/17 04:30 04/08/17 04:30 04/07/17 04/08/17 04/09/17 05:59 05:59 05:59 Intake Total 4177 Output Total 9292 293 Balance 1912 -735 - Pending Discharge Pending Discharge Within 24 Hours: No ICD10 Worksheet Patient Problems: Problems Problem Status Onset Septic arthritis Acute
[2017-04-09] MEDS: ACETAMINOPHEN 500 MG TAB PO SCH ×2 (05:16→13:57)
[2017-04-09] MEDS: HYDROmorphONE/DILAUDID 4 MG TAB PO PRN (05:17)
[2017-04-09] MEDS: ceFAZolin 2 GM/DEXTROSE 100 ML IV SCH ×2 (05:18→13:59)
[2017-04-09] MEDS ORDERED: CALCIUM CARBONATE 500 MG CHEWABLE TAB PO PRN (05:42)
[2017-04-09] MEDS ORDERED: CALCIUM CARBONATE 500 MG CHEWABLE TAB PO ONE (06:00)
[2017-04-09] MEDS ORDERED: ALTEPLASE 2 MG VIAL IVP PRN (09:57)
--- NOTE | 2017-04-09 10:00 | PCMIDPN ---
Assessment/Plan: MSSA Septic arthritis L knee with adjacent hardware in the tibia s/p washout. Corresponding blood cultures remain negative. --dc on cefazolin 6gm IV continuous infusion --PICC line ordered --DC okay from ID , inter agency completed, follow-up appointment with Dr. Wong and case discussed with Orthopedics, internal medicine and case management Medications Cefazolin 2 g IV Q 8 Subjective: Patient reports pain in left knee is improved. Patient is bothered by drain. Also difficulty getting sleep in the hospital. Objective: Vital Signs Temp Pulse Resp BP Pulse Ox 36.8 C 80 16 110/59 L 95 04/09/17 07:34 04/09/17 07:34 04/09/17 07:34 04/09/17 07:34 04/09/17 07:34 Microbiology 04/07/17 19:01 Gram Stain - Final Synovial Fluid - Aspirate 04/07/17 19:01 Mycobacterial Smear (ULYSSES) - Final Synovial Fluid - Aspirate Laboratory Results 04/08/17 04:30 04/08/17 04:30 04/08/17 04/09/17 04/10/17 05:59 05:59 05:59 Intake Total 4177 850 Output Total 2265 755 Balance 1912 95 ESR 35 MM/HR (0-15) H 04/07/17 11:36 C-Reactive Protein 193.8 mg/L (<10.0) H 04/07/17 11:36 - Physical Exam General Appearance: alert Respiratory: lungs clear Neck: supple Cardiac/Chest: regular rate, rhythm Extremities: other (L knee swelling, JINA drain with serosang fluid, 2+ DP pulses with normal cap refill) Skin: No rash Neuro/Psych: alert, normal mood/affect, oriented x 3 - Time Spent With Patient Time Spent with Patient: greater than 25 minutes Time Spent with Patient: Greater than 25 minutes spent on this patients care, greater than 50% of time spent counseling, educating, and coordinating care regarding the above mentioned plan. ICD10 Worksheet Patient Problems: Problems Problem Status Onset Septic arthritis Acute
--- NOTE | 2017-04-09 10:02 | PDIAF ---
- Diagnosis Diagnosis: MSSA L knee septic arthritis Code Status: Full Code - Medication Management Discharge Medications: Medications to Continue on Transfer NK [No Known Home Meds] 04/07/17 [Last Taken Unknown] Sports Umpire Antibiotics: cefazolin 6gm IV continuous infusion Alf Antibiotic Stop Date: 05/05/17 Discharge Medications: Refer to the Discharge Home Medication list for PRN reason. PICC Care - Routine: Yes - Orders Services needed: Home Care, Registered Nurse Home Care Face to Face: I certify that this patient was under my care and that I had the required [id number]-[id number] encounter meeting the encounter requirements on the discharge day. My findings support the fact that the patient is homebound as defined in Home Care Face to Face Continued: CMS Chapter 7 Medicare Benefits Manual 30.1.1 , The condition of the patient is such that there exists a normal inability to leave home and consequently, leaving home would require a considerable and taxing effort. - Labs/Radiology CBC w/diff Date: 04/14/17 (weekly Friday) CMP Date: 04/14/17 (weekly Friday) CRP Date: 04/14/17 Call or Fax [facility] and [phone] - Follow Up Care Current Providers and Referrals: NONE *PRIMARY CARE P,. [Primary Care Provider] - As per Instructions Terry Wong MD [Medical Doctor] - 04/17/17 11:00 am
[2017-04-09] MEDS: ENOXAPARIN 40 MG/0.4 ML SYR SC SCH (10:20)
[2017-04-09] MEDS: NICOTINE 14 MG/24 HR PATCH TD SCH (10:20)
[2017-04-09] MEDS: oxyCODONE IR 5 MG TAB PO PRN ×2 (10:21→15:30)
--- NOTE | 2017-04-09 10:51 | ASMTCMCOM ---
CM Note CM Note Notes: CM met w/ pt for dispo planning. Pt is being discharged today w/ iv antibiotics. Pt is agreeable to having [facility] and [facility] for RN services. Referrals made to both facilities. Pt will have PICC line placed today. D/C orders sent to both facilities. CM provided LIBERTAD Connelly w/ phone number to give report to [facility]. CM available for changes. Date Signed: 04/09/2017 10:51 AM Electronically Signed By:ANAHI Catalan
--- NOTE | 2017-04-09 11:28 | SOAPPROG ---
SOAP Progress Note Assessment/Plan: Assessment: improved. Plan: 04/09/17 11:27 discharge fu at [facility] [place] friday for wound check and ROM Subjective: 20 cc drain overnoc 95 flexion yesterday actively feeling better ID consult Ancef 4 weeks PICC line retain hardware for now Objective: Vital Signs Temp Pulse Resp BP Pulse Ox 36.8 C 80 16 110/59 L 95 04/09/17 07:34 04/09/17 07:34 04/09/17 07:34 04/09/17 07:34 04/09/17 07:34 Microbiology 04/07/17 19:01 Gram Stain - Final Synovial Fluid - Aspirate 04/07/17 19:01 Mycobacterial Smear (ULYSSES) - Final Synovial Fluid - Aspirate Laboratory Results 04/08/17 04:30 04/08/17 04:30 04/08/17 04/09/17 04/10/17 05:59 05:59 05:59 Intake Total 4177 850 Output Total 2028 755 Balance 1912 95 ICD10 Worksheet Patient Problems: Problems Problem Status Onset Septic arthritis Acute
--- NOTE | 2017-04-09 12:38 | HOSPPROG ---
Hospitalist Progress Note Assessment/Plan: Patient is a 36-year-old male with a hx of a tib/ fib fx this year requiring surgery. After surgery he has had a number of skin abscesses along his lateral incision that were I & D. He went to the operating room approximately 2 weeks ago for washout. He was treated with IV antibiotics and then oral Keflex. Reviewed his care w Dr Ponce and Dr Martínez/ plan is dc home and further f/u w ID and Dr Ponce's PA this friday * left knee septic joint / MSSA -status post washout with Dr. Ponce -on cefazolin -has hardware in place -PICC to be placed * pain due to the above -continue pain medications and scheduled tylenol -dc iv pain medications * iron deficiency anemia -will need to get further workup in the outpatient setting -will have his stools Hemoccult *Nicotine dependence: patch ordered *Plan: cont care as above Subjective: Robi is feeling much better today. Objective: Vital Signs Temp Pulse Resp BP Pulse Ox 36.5 C 89 18 110/59 L 96 04/09/17 11:58 04/09/17 11:58 04/09/17 11:58 04/09/17 11:58 04/09/17 11:58 Microbiology 04/07/17 19:01 Gram Stain - Final Synovial Fluid - Aspirate 04/07/17 19:01 Mycobacterial Smear (ULYSSES) - Final Synovial Fluid - Aspirate Laboratory Results 04/08/17 04:30 04/08/17 04:30 04/08/17 04/09/17 04/10/17 05:59 05:59 05:59 Intake Total 4177 850 Output Total 2265 755 Balance 1912 95 - Physical Exam Constitutional: no apparent distress, appears nourished, not in pain Eyes: PERRL Ears, Nose, Mouth, Throat: hearing normal Cardiovascular: regular rate and rhythym Respiratory: no respiratory distress Gastrointestinal: normoactive bowel sounds Skin: warm Musculoskeletal: generalized weakness Neurologic: AAOx3 Psychiatric: interacting appropriately, not anxious ICD10 Worksheet Patient Problems: Problems Problem Status Onset Septic arthritis Acute
--- NOTE | 2017-04-09 13:09 | PDIAF ---
- Diagnosis Diagnosis: MSSA L knee septic arthritis Code Status: Full Code - Medication Management Discharge Medications: Medications to Continue on Transfer Acetaminophen [Tylenol ES 500 mg (*)] 1,000 mg PO Q8 tab 04/09/17 [Last Taken Unknown] oxyCODONE IR [Oxycodone Ir (*)] 5 mg PO Q3HRS PRN #15 tab 04/09/17 [Last Taken Unknown] Strap Buckler Machine Antibiotics: cefazolin 6gm IV continuous infusion Halfway Antibiotic Stop Date: 05/05/17 Discharge Medications: Refer to the Discharge Home Medication list for PRN reason. PICC Care - Routine: Yes - Orders Services needed: Home Care, Registered Nurse Home Care Face to Face: I certify that this patient was under my care and that I had the required [id number] encounter meeting the encounter requirements on the discharge day. My findings support the fact that the patient is homebound as defined in Home Care Face to Face Continued: CMS Chapter 7 Medicare Benefits Manual 30.1.1 , The condition of the patient is such that there exists a normal inability to leave home and consequently, leaving home would require a considerable and taxing effort. Diet Recommendation: no restrictions on diet Diet Texture: Regular Texture Diet - Labs/Radiology CBC w/diff Date: 04/14/17 (weekly Friday) CMP Date: 04/14/17 (weekly Friday) CRP Date: 04/14/17 (weekly Friday) Call or Fax [phone] - Follow Up Care Current Providers and Referrals: Terry Wong MD [Medical Doctor] - 04/17/17 11:00 am NONE *PRIMARY CARE P,. [Primary Care Provider] - As per Instructions King Ponce MD [Medical Doctor] -
[2017-04-09] MEDS ORDERED: IBUPROFEN 200 MG TAB PO PRN (15:24)
[2017-04-09] MEDS ORDERED: IBUPROFEN 600 MG TAB PO ONE (15:30)
[2017-04-09 17:34] VITALS: BP 112/78; PULSE 102; RESP 20; O2SAT 98
--- NOTE | 2017-04-09 17:36 | CPEKG ---
Heart Rate: 87 RR Interval: 690 P-R Interval: 144 QRSD Interval: 98 QT Interval: 376 QTC Interval: 453 P Hydro: 56 QRS Hydro: 76 T Wave Hydro: 39 EKG Severity - NORMAL ECG - EKG Impression: SINUS RHYTHM Electronically Signed By: Mitchell Gorman 10-Apr-2017 13:13:12
[2017-04-09 18:05] VITALS: TEMP 98.3
--- NOTE | 2017-04-10 02:33 | GDS ---
[f rep st] DISCHARGE SUMMARY DISCHARGE DIAGNOSES: 1. Left septic knee joint, methicillin-sensitive Staphylococcus aureus. 2. Pain due to this. 3. Iron deficiency anemia. 4. Nicotine dependence. CONSULTATIONS: 1. Dr. Terry Wong. 2. Dr. King Ponce. Briefly, Kristian Blanco is a 36-year-old male with a past medical history of a tibia-fibula fracture in November. This occurred when he fell off his skateboard. Initially, this was managed with an external fixation. Subsequently in December, he underwent an ORIF to treat the fracture. He developed some small skin abscesses along the lateral incision line and were noted to be caused by the stitches. He was treated with Keflex on 2 different occasions. He came to the emergency room for worsening pain. He was having fevers as high as 102. He had an arthrocentesis that was performed. His fluid showed 89,896 white blood cell count as well as elevated red blood cell and 98% neutrophils. He was seen and evaluated by Dr. Wong and treated with cefazolin. Today, he is improved. He will be discharged home and further follow up with Dr. Wong and Dr. Ponce in the outpatient setting. HOSPITAL COURSE: 1. Left knee septic joint growing out MSSA: He does have a hardware in place. If this is left in, Infectious Disease will likely place him on suppression therapy after treatment with IV antibiotics. He has a PICC that will be placed prior to his discharge today. 2. Pain due to the above: He is on scheduled Tylenol. He will get a prescription for Oxy IR. 3. Iron deficiency anemia: I reviewed this with the patient. He should get further workup in the outpatient setting. 4. Nicotine dependence: Patch has been ordered. DISCHARGE CONDITION: Stable. Blood pressure is 110/59, heart rate is 89, respiratory rate is 18, O2 saturation on room air 96%, temperature is 36.5 Celsius. MEDICATIONS AT DISCHARGE: Please see the EMR. DISCHARGE INSTRUCTIONS: 1. Further follow up with Dr. Ponce at the end of this week. His prescription for pain medications was sent to [facility]. He is not to drink or drive while on this medication. 2. Further followup with iron-deficiency anemia. 3. If he develops fever, chills, rigors, to return to the ER. Greater than 30 minutes discharging and coordinating care. /[id number]/MODL MTDD
--- NOTE | 2017-04-14 13:27 | PQFORM ---
PHYSICIAN QUERY FORM Needs Your Response This query form is being sent to you to assure this patient record is coded properly. Please respond to the question below: LOGISTICS CENTER MANAGER QUESTION: Dear KAYLI Soto, In reviewing this patient medical record, it is noted the patient had the diagnosis of "Septic arthritis," along with the presence of Internal fixation device. H&P states "Postoperative septic arthritis," along with "Smoldering infection for a few months." Dr. Ponce's 04/07 consultation states "Concern for chronic joint or septic joint in setting of ORIF less than [address] Wong' s 04/07 consultation states "Postoperative infection of left knee." Can the Septic joint infection be further specified? Infection following a procedure Infection and Inflammatory reaction due to internal fixation device Other more appropriate diagnosis Unable to determine Thank you [facility]Coding Dept. [phone] INSTRUCTIONS FOR RESPONSE: Answer question by clicking on the "Edit Document" button. Move cursor to area below the stars. When complete, hit "Save." Click on the "Sign" button, then click "Sign" again. Type in your PIN and hit "Enter." infection following a procedure MTDD
== END 2017-04-09 18:09 | disposition home health service (06) | DRG 857 ==
LOC: F3E 16:15
PROVIDERS: ADMIT Internal Medicine; ATTEND Internal Medicine
PROC: 3E1U38Z Irrigation of Joints using Irrigating Substance, Percutaneous Approach (ICD-10-PCS; principal; 2017-04-07 18:30)
PROC: 0SBD4ZZ Excision of Left Knee Joint, Percutaneous Endoscopic Approach (ICD-10-PCS; principal; 2017-04-07 18:30)
PROC: 02HV33Z Insertion of Infusion Device into Superior Vena Cava, Percutaneous Approach (ICD-10-PCS; 2017-04-09)
DX: T81.4XXA Infection following a procedure, initial encounter (principal); M00.262 Other streptococcal arthritis, left knee; B95.61 Methicillin susceptible Staphylococcus aureus infection as the cause of diseases classified elsewhere; D50.9 Iron deficiency anemia, unspecified; F17.200 Nicotine dependence, unspecified, uncomplicated
CPT/HCPCS: 96365; 97161-GP; 97165-GO; C1751; J0690; J1170; J1650; J2250; J2704; J2795; J3010; J3370

== ENCOUNTER → 2017-09-29 | Outpatient (CLI) | payer OTHER | LOC: FIMAGING 07:56 | PROVIDERS: ATTEND Orthopaedic Surgery | DX: Z47.89 Encounter for other orthopedic aftercare (principal); S82.102D Unspecified fracture of upper end of left tibia, subsequent encounter for closed fracture with routine healing; M25.562 Pain in left knee; M23.42 Loose body in knee, left knee; M25.462 Effusion, left knee ==

== ENCOUNTER 2017-12-08 13:21 | Inpatient (IN) | payer OTHER ==
--- NOTE | 2017-12-07 21:34 | PDGENHP ---
History & Physical Chief Complaint: left knee pain, s/p left knee arthrotomy and SHARRON History of Present Illness: kingston is a pleasant 37 yo male presenting today for surgery s/p left knee multiple surgeries due to sharron for septic knee 04/07/17, primary ORIF 12/26. today for hardare removal, wound vac, and ID consult Pertinent Past, Social, Family History: PMH: denies. SOC: former smoker, alcohol occasional, denies rec drugs. FH: denies relevant Relevant Physical Exam: local abscess over the lateral incision inferiorly, slight redness, no warmth to touch, no opening, no separation, grossly nvid A/P Assessment: 37 yo male, s/p left knee arthrotomy and SHARRON for septic arthrofiboritic joint on 04/07/17, s/p bicondylar tib plat ORIF at [facility], presenting today for left knee surgery, hardware removal, wound vac placement, and ID consult.
[2017-12-08] MEDS ORDERED: ceFAZolin 2 GM/DEXTROSE 100 ML IV ONE (13:32)
[2017-12-08] MEDS ORDERED: LR 1,000 ML IV ONE (13:32)
[2017-12-08] MEDS ORDERED: BUPIVACAINE 0.25% 30 ML SDV ONE (13:40)
[2017-12-08] MEDS ORDERED: POLYMYXIN B SULFATE 500,000 UNIT/10 ML SYR IRR ONE (13:41)
[2017-12-08] MEDS ORDERED: BACITRACIN 50,000 UNITS/10 ML SYR IRR ONE (13:41)
--- NOTE | 2017-12-08 15:21 | PDHPUP ---
History & Physical Update H&P update statement: This history and physical update is based on an assessment of the patient which was completed after admission or registration (within 24 hours), but prior to the surgery/procedure. H&P update: H&P reviewed & patient examined, no change in patient's condition since H&P completed H&P changes: n/a
[2017-12-08] MEDS ORDERED: PROPOFOL/EMULSION 500 MG/50 ML BOTTLE IV ONE (15:22)
[2017-12-08] MEDS ORDERED: MIDAZOLAM 2 MG/2 ML VIAL ONE ×2 (15:22→15:32)
[2017-12-08] MEDS ORDERED: fentaNYL 250 MCG/5 ML INJ ONE (15:22)
[2017-12-08] MEDS ORDERED: PROMETHAZINE HCL 25 MG/ML INJ IVP PRN (15:32)
[2017-12-08] MEDS ORDERED: ONDANSETRON 4 MG/2 ML VIAL IVP PRN ×2 (15:32→16:01)
[2017-12-08] MEDS ORDERED: KETOROLAC 30 MG/1 ML SDV ONE (15:34)
[2017-12-08] MEDS ORDERED: RANITIDINE 50 MG/2 ML VIAL ONE (15:34)
[2017-12-08] MEDS ORDERED: LIDOCAINE 2% 5 ML SDV ONE (15:34)
[2017-12-08] MEDS ORDERED: METOCLOPRAMIDE 10 MG/2 ML VIAL ONE (15:34)
[2017-12-08] MEDS ORDERED: ONDANSETRON 4 MG/2 ML VIAL ONE (15:34)
--- NOTE | 2017-12-08 15:37 | PDANEPAE ---
ANE Past Medical History - Cardiovascular History Hx Hypertension: No Hx Arrhythmias: No Hx Chest Pain: No Hx Coronary Artery / Peripheral Vascular Disease: No Hx CHF / Valvular Disease: No Hx Palpitations: No - Pulmonary History Hx COPD: No Hx Asthma/Reactive Airway Disease: No Hx Recent Upper Respiratory Infection: No Hx Oxygen in Use at Home: No Hx Sleep Apnea: No Sleep Apnea Screening Result - Last Documented: Negative - Neurologic History Hx Cerebrovascular Accident: No Hx Seizures: No Hx Dementia: No Neurologic History Comment: PAST MIGRAINES - Endocrine History Hx Diabetes: No - Renal History Hx Renal Disorders: No - Liver History Hx Hepatic Disorders: No - Neurological & Psychiatric Hx Hx Neurological and Psychiatric Disorders: Yes Neurological / Psychiatric History Comment: ANXIETY & DEPRESSION - Cancer History Hx Cancer: No - Congenital Disorder History Hx Congenital Disorders: No - GI History Hx Gastrointestinal Disorders: No - Other Health History Other Health History: SL ANEMIA W/PAST BLOOD WORK - Chronic Pain History Chronic Pain: Yes (L KNEE) - Surgical History Prior Surgeries: L KNEE x4 ANE Review of Systems Review of Systems: - Exercise capacity METS (RN): 4 METS ANE Patient History - Allergies Allergies/Adverse Reactions: No Known Allergies Allergy (Verified 12/08/17 14:00) - Home Medications Home Medications: Doxycycline Hyclate [Vibramycin 100 MG (*)] 100 mg PO BID 11/25/17 [Last Taken 12/08/17 09:00] Herbals/Supplements -Info Only 1 ea PO DAILY 12/01/17 [Last Taken Unknown] Ibuprofen [Motrin (*)] 200 mg PO DAILY PRN 12/01/17 [Last Taken 12/07/17] Multivitamins [Multivitamin (*)] 1 each PO DAILY 12/08/17 [Last Taken 12/01/17] [place]-3 Fatty Acids [Fish Oil 1000 mg (*)] 1,000 mg PO DAILY 12/08/17 [Last Taken 12/01/17] Vitamin B Complex [Vitamin B Complex (OTC)] 1 each PO DAILY 12/08/17 [Last Taken 12/01/17] - NPO status NPO Since - Liquids (Date): 12/08/17 NPO Since - Liquids (Time): 11:30 NPO Since - Solids (Date): 12/07/17 NPO Since - Solids (Time): 17:00 - Smoking Hx Smoking Status: Former smoker - Family Anes Hx Family Hx Anesthesia Complications: NEG ANE Labs/Vital Signs - Vital Signs Height: 185.42 cm Weight: 83.915 kg ANE Physical Exam - Airway Neck exam: FROM Mallampati Score: Class 1 Mouth exam: normal dental/mouth exam - Pulmonary Pulmonary: no respiratory distress, no rales or rhonchi, clear to auscultation - Cardiovascular Cardiovascular: regular rate and rhythym, no murmur, rub, or gallop - ASA Status ASA Status: II ANE Anesthesia Plan Anesthesia Plan: GA w LMA
[2017-12-08] MEDS ORDERED: METOCLOPRAMIDE 10 MG/2 ML VIAL IVP PRN (16:01)
[2017-12-08] MEDS ORDERED: NALOXONE HCL 0.4 MG/ML INJ IVP PRN (16:01)
[2017-12-08] MEDS ORDERED: DEXAMETHASONE 4 MG/ML VIAL IVP PRN (16:01)
[2017-12-08] MEDS ORDERED: DIAZEPAM 5 MG/ML 1 ML SYR IVP PRN (16:01)
[2017-12-08] MEDS ORDERED: LR 500 ML IV PRN (16:01)
[2017-12-08] MEDS ORDERED: ALBUTEROL 3 ML DEYVIAL IH PRN (16:01)
[2017-12-08] MEDS ORDERED: PROPOFOL 200 MG/20 ML VIAL ONE (16:25)
[2017-12-08] MEDS: BUPIVACAINE 0.25% 30 ML SDV ONE ×2 (16:45→17:17)
[2017-12-08] MEDS ORDERED: ROPIVACAINE HCL 150 MG/30 ML INJ ONE (17:11)
[2017-12-08] MEDS ORDERED: HYDROGEN PEROXIDE 236 ML BOTTLE TP ONE (17:13)
[2017-12-08] MEDS ORDERED: fentaNYL 100 MCG/2 ML INJ ONE (17:43)
[2017-12-08] MEDS: fentaNYL 100 MCG/2 ML INJ IVP PRN ×2 (17:45→17:53)
[2017-12-08] MEDS ORDERED: HYDROmorphONE/DILAUDID 1 MG/ML INJ ONE (18:01)
[2017-12-08] MEDS: HYDROmorphONE/DILAUDID 1 MG/ML INJ IVP PRN ×2 (18:01→18:59)
--- NOTE | 2017-12-08 18:02 | GOP ---
[f rep st] OPERATIVE REPORT DATE OF OPERATION: SURGEON: King Ponce MD PREOPERATIVE DIAGNOSIS: 1. Bicondylar tibial plateau fracture, left knee. 2. Suspected infected hardware. 3. Knee arthrofibrosis. POSTOPERATIVE DIAGNOSIS: 1. Bicondylar tibial plateau fracture, left knee. 2. Suspected infected hardware. 3. Knee arthrofibrosis. PROCEDURE PERFORMED: 1. Removal of hardware, left knee. 2. Irrigation, debridement, left tibia. 3. Manipulation under anesthesia of left knee. Range of motion was 10 degrees to 150 degrees under anesthesia. FINDINGS: SPECIMENS: Hardware, both medial and lateral plates with screws as well as multiple cultures. DESCRIPTION OF PROCEDURE: Patient brought into the operating room. General anesthesia. He declined a block. Left thigh tourniquet was placed. Left lower extremity prepped and draped in the usual st erile fashion. Surgical time-out was performed. Esmarch exsanguination. 88 minutes tourniquet time . A curvilinear incision was made laterally. We excised the pockets of purulence. Upon entering th e plate, we found grayish brownish pockets of purulence. This was cultured. We excised part of the wound and also sent that for culture. One screw was loose superiorly that was outside of the plate, but the remainder of the screws actually were in pretty good condition. We easily removed the screws and plate. We redraped and then went over to the medial side and extracted that plate. There was n o evidence of loose screws and actually evidence of some bone growing over the plate. The bone looke d excellent. The medial side had only 1 pocket of purulence about 1 x 1 cm that was also grayish. W e used 6 L of LR with polymyxin bacitracin. Debrided on healthy-looking tissue. Used a curette and multiple rongeurs and debrided the screw holes as well. We took final fluoroscopic films, which show ed no evidence of hardware retention. We redraped again, changed gloves, and used 3-0 Monocryl for s ubcutaneous closure monofilament, and 3-0 vertical mattress sutures monofilament. Placed an incision al wound VAC on both. 25 cc of 0.5% plain Marcaine were used as well as 10 cc of 0.2% ropivacaine in a field block in subcu taneous tissues. The patient was extubated awake to the PACU in stable condition. BRIEF INDICATIONS: 37-year-old male who sustained a bicondylar tibial plateau fracture. This was af fixed elsewhere. He had a stiff knee. Had local wound debridements for question suture abscess. I performed a knee arthroscopy and manipulation under anesthesia with retention of hardware. He had an tibiotics chronically to suppress presumably a gram-positive infection. He returned with recurrence of the lateral wound separation and possible infection. CT scan proved to have some healing bone. T hus he wanted the hardware out. The patient identified in the preoperative holding area. The lateral wound actually looked a little bit better. There was ulceration distally in a crescentic fashion that measured about 2 x 1 cm. The medial wound looked excellent. All questions were answered. /[id number]/MODL
--- NOTE | 2017-12-08 19:32 | POSTANESTH ---
Post Anesthetic Evaluation Cardiovascular Status: Normal, Stable, Similar to Pre-Op Cond Respiratory Status: Normal, Stable, Similar to Pre-op Cond. Level of Consciousness/Mental Status: Mildly Sleepy, Arousable Pain Control: Adequate, Prn Tx Ordered Nausea/Vomiting Control: Adequate, Prn Tx Ordered Complications Possibly Related to Anesthesia: None Noted
[2017-12-08] MEDS: ceFAZolin 2 GM/DEXTROSE 100 ML IV SCH (22:04)
[2017-12-08] MEDS: oxyCODONE IR 5 MG TAB PO PRN (22:04)
[2017-12-08] MEDS: HYDROCODONE/APAP 5/325 TAB PO PRN (22:48)
[2017-12-09] MEDS: oxyCODONE IR 5 MG TAB PO PRN ×4 (01:22→10:18)
[2017-12-09] MEDS: ceFAZolin 2 GM/DEXTROSE 100 ML IV SCH ×3 (05:47→21:41)
[2017-12-09] MEDS: ENOXAPARIN 40 MG/0.4 ML SYR SC SCH (08:36)
[2017-12-09] MEDS: HYDROCODONE/APAP 5/325 TAB PO PRN ×2 (08:41→12:14)
[2017-12-09] MEDS ORDERED: ALTEPLASE 2 MG VIAL IVP PRN (09:44)
--- NOTE | 2017-12-09 10:19 | PDMN ---
Medical Necessity Medical necessity: [facility] Musculoskeletal Surgery or Procedure GRG, 37 y/o with infection to ortho hardware left prox tibia and knee. Surgical removal required. ID consult. PT/OT consults. IV antibx, IV opioids required. Cultures pending. Anticipate >2MN for ongoing monitoring and treatment.
--- NOTE | 2017-12-09 13:01 | SOAPPROG ---
SOAP Progress Note Assessment/Plan: Assessment: 37 yo male, pod#1 s/p left knee hardware removal and medial/lateral wound vac placements -pain continues to be difficult to manage with just opiates, will ADD ON : ibuprofen 800mg q8h scheduled flexeril 10mg q8h prn spasm tylenol prn pain stay <3000mg/24 h -ID consult: picc placement, IV abx pending culture specification of abx for proably 6 weeks -picc placement today -pt/ot: full flexion/extension as tolerated, weight bearing as tolerated Subjective: kingston reports he slept well through the night, denies any issues or problems, reports now that he is awake the pain can be bad at times, would like more pain relief/coverage, denies any fevers or chills, denies any n/v/d/c, denies cp/sob. reports he is going to get his picc line soon and that dr. machuca saw him earlier Objective: LLE: no erythema or ecchymosis, moderate edema of left knee, with wound vac dressings in place medially and laterally with good seal, minimal output of willy blood, no wound break down, appropriately ttp, grossly nvid Vital Signs Temp Pulse Resp BP Pulse Ox 36.7 C 71 17 98/57 L 95 12/09/17 08:00 12/09/17 08:00 12/09/17 08:00 12/09/17 08:00 12/09/17 08:00 Microbiology 12/08/17 16:30 Gram Stain - Final Knee - Tissue 12/08/17 16:08 Gram Stain - Final Knee - Eswab 12/08/17 16:08 Gram Stain - Final Knee - Eswab 12/08/17 12/09/17 12/10/17 05:59 05:59 05:59 Intake Total 820 Output Total 360 275 Balance 460 -275 ICD10 Worksheet Patient Problems: Problems Problem Status Onset Septic arthritis Acute
--- NOTE | 2017-12-09 14:22 | PCMIDPN ---
Assessment/Plan: Assessment/Plan: * Left lower extremity postoperative infection due to MSSA status post hardware removal: Patient experience recurrent abscess formation in the left knee after discontinuation of suppressive doxycycline. Now has undergone hardware removal with operative findings noted including pockets of fontenot fluid. Most likely this will be due to MSSA as this was initial cause of his illness. Will require 6 weeks of IV antibiotic therapy post hardware removal. Will continue cefazolin pending repeat cultures. Will place PICC line today. Risks and benefits of antibiotics and PICC line discussed with patient. 12/09/17 14:18 Subjective: Patient well known to me from prior care for postoperative infection of the left knee with retained hardware with prior culture showing growth of MSSA. Patient completed 6 weeks of cefazolin and was maintained on suppressive doxycycline until approximately September. In early November, he developed recurrent swelling, erythema and tenderness of the left knee compatible with recurrent infection in association with retained hardware. Yesterday, patient underwent repeat incision and drainage with removal of hardware. Pockets of purulent fontenot fluid were noted intraoperatively with 1 screw noted to be loose. Cultures were obtained of this material and are currently pending. Based on the above findings, Infectious diseases is now asked to continue with assistance in his ongoing management. Objective: Vital Signs Temp Pulse Resp BP Pulse Ox 36.7 C 71 17 98/57 L 95 12/09/17 08:00 12/09/17 08:00 12/09/17 08:00 12/09/17 08:00 12/09/17 08:00 Microbiology 12/08/17 16:08 Gram Stain - Final Knee - Eswab 12/08/17 16:30 Mycobacterial Smear (ULYSSES) - Final Knee - Tissue 12/08/17 16:30 Gram Stain - Final Knee - Tissue 12/08/17 16:08 Gram Stain - Final Knee - Eswab 12/08/17 12/09/17 12/10/17 05:59 05:59 05:59 Intake Total 820 Output Total 360 275 Balance 460 -275 Several cultures pending with negative Gram stains - Physical Exam General Appearance: alert, no apparent distress EENT: No scleral icterus, No thrush Respiratory: lungs clear, No respiratory distress Cardiac/Chest: regular rate, rhythm, No systolic murmur Extremities: inflammation (Left knee dressed postoperatively with incisional wound VAC x2; warmth present with edema over knee) Abdomen: non-tender, No distended Skin: No rash ICD10 Worksheet Patient Problems: Problems Problem Status Onset Septic arthritis Acute
--- NOTE | 2017-12-09 14:26 | ASMTCMCOM ---
CM Note CM Note Notes: Pt s/p hardware removal for infected knee. Wound vac placed, CM will need to know if pt has to d/c with [facility]. ID consulting. PT rec home, OT eval pending. CM to follow for d/c planning. Date Signed: 12/09/2017 12:54 PM Electronically Signed By:EUGENIE Menchaca
[2017-12-09] MEDS: CYCLOBENZAPRINE 10 MG TAB PO PRN (17:14)
[2017-12-09] MEDS: DOCUSATE SODIUM 100 MG CAP PO SCH (20:00)
[2017-12-09] MEDS: IBUPROFEN 800 MG TAB PO SCH (21:41)
[2017-12-10] MEDS: HYDROCODONE/APAP 5/325 TAB PO PRN ×3 (01:19→14:53)
[2017-12-10] MEDS: ceFAZolin 2 GM/DEXTROSE 100 ML IV SCH ×3 (05:30→22:57)
[2017-12-10] MEDS: IBUPROFEN 800 MG TAB PO SCH ×3 (05:30→22:57)
[2017-12-10] MEDS: DOCUSATE SODIUM 100 MG CAP PO SCH ×2 (08:50→22:57)
[2017-12-10] MEDS: ENOXAPARIN 40 MG/0.4 ML SYR SC SCH (08:50)
--- NOTE | 2017-12-10 11:42 | PCMIDPN ---
Assessment/Plan: Assessment/Plan: * Left lower extremity postoperative infection due to MSSA status post hardware removal: Cultures today showing growth of Staphylococcus aureus with susceptibility pending. Suspect this will be MSSA based on prior history. Continue cefazolin with anticipated 6 week course of therapy. Begin discharge planning for outpatient IV antibiotic therapy. Risk and benefits of IV antibiotics and PICC line discussed with patient. 12/10/17 14:38 Subjective: 37 y/o M laying in comfortably in his bed presents for follow-up evaluation of L leg. When asked about his pain he states not much pain. He ambulates with crutches. Denies associated itching, rash, diarrhea, food intolerance, RUE PICC line issues. Has been on Cefazolin for past 2 days. Objective: Vital Signs Temp Pulse Resp BP Pulse Ox 36.6 C 67 16 95/52 L 94 12/10/17 08:00 12/10/17 08:00 12/10/17 08:00 12/10/17 08:00 12/10/17 08:00 Microbiology 12/08/17 16:30 Gram Stain - Final Knee - Tissue 12/08/17 16:30 Mycobacterial Smear (ULYSSES) - Final Knee - Tissue 12/08/17 16:08 Gram Stain - Final Knee - Eswab 12/08/17 16:08 Gram Stain - Final Knee - Eswab 12/09/17 12/10/17 12/11/17 05:59 05:59 05:59 Intake Total 820 2520 Output Total 360 2025 Balance 460 495 Abx #2 cefazolin Operative cultures with S. aureus: susceptibility pending (previously with MSSA) - Physical Exam General Appearance: alert, no apparent distress EENT: normal ENT inspection, No scleral icterus, No conjunctival petechiae Respiratory: lungs clear, normal breath sounds Cardiac/Chest: regular rate, rhythm Extremities: other (Incisional would vac over left knee, mild knee edema with small effusion; no overlying erythema, 1+ edema in lower leg ) - Line/s RUE PICC Lines: No drainage, No erythema ICD10 Worksheet Patient Problems: Problems Problem Status Onset Septic arthritis Acute
--- NOTE | 2017-12-10 12:05 | SOAPPROG ---
SOAP Progress Note Assessment/Plan: Assessment 37 yo male, pod#1 s/p left knee hardware removal and medial/lateral wound vac placements -pain management significantly improved with flexeril 10mg 1 tab po q8h prn spasm, ibuprofen 800mg q8h. -ID consult: IV abx pending culture specification of abx, iv cefazolin 2 grams q8h x6 weeks -picc placed yesterday, no issues thus far -pt/ot: continue full weight bearing and range of motion as tolerated by pain -DISCONTINUE WOUND VAC TODAY, order placed, re-apply [id number] as dressing. -dispo: pending set up with home health for IV abx, will follow up with orthopedics 7-10 days after discharge for wound check, will plan for possible/ tentative DC for home 12/11/17 if home health is set up Subjective: Robi reports he slept significantly better last night, pain is much better controlled with the ibuprofen scheduled for every 8 hours and the flexeril, and he's not taken any opiates since 1AM. denies any fevers or chills, denies cp/sob , denies numbness or tingling. reports dr. machuca came and saw him earlier, they are recommending IV abx x6 weeks , but they are okay for him to be discharged (per patient) once home health is set up with IV abx, and patient is cleared by the other teams for discharge. Objective: LLE: no erythema/ecchymosis, mild-moderate edema knee, loss of 6 degrees extension, flexion 6-140 w/o pain, grossly nvid, wound vac dressings in place, no breakdown or leaks, less than 100cc willy red blood output Vital Signs Temp Pulse Resp BP Pulse Ox 36.6 C 67 16 95/52 L 94 12/10/17 08:00 12/10/17 08:00 12/10/17 08:00 12/10/17 08:00 12/10/17 08:00 Microbiology 12/08/17 16:30 Gram Stain - Final Knee - Tissue 12/08/17 16:30 Mycobacterial Smear (ULYSSES) - Final Knee - Tissue 12/08/17 16:08 Gram Stain - Final Knee - Eswab 12/08/17 16:08 Gram Stain - Final Knee - Eswab 12/09/17 12/10/17 12/11/17 05:59 05:59 05:59 Intake Total 820 2520 Output Total 360 5 Balance 460 495 - Pending Discharge Pending Discharge Within 48 Hours: Yes Pending Discharge Date: 12/12/17 Pending Discharge Time: 11:00 ICD10 Worksheet Patient Problems: Problems Problem Status Onset Septic arthritis Acute
[2017-12-10] MEDS: CYCLOBENZAPRINE 10 MG TAB PO PRN ×2 (15:14→22:58)
--- NOTE | 2017-12-10 16:14 | ASMTCMCOM ---
CM Note CM Note Notes: Pt will not d/c with wound vac, will need 6 weeks IV antibiotics. Referral sent to [facility] (pt has been on services with them in past). Gema with [facility] ran pt benefits and communicated with pt the cost expectation. Pt has picc. Plan for d/c tomorrow with [facility] and home care provider. Date Signed: 12/10/2017 04:14 PM Electronically Signed By:EUGENIE Menchaca
--- NOTE | 2017-12-10 17:34 | PDIAF ---
- Diagnosis Diagnosis: Le Code Status: Full Code - Medication Management Discharge Medications: Medications to Continue on Transfer Doxycycline Hyclate [Vibramycin 100 MG (*)] 100 mg PO BID 11/25/17 [Last Taken 12/08/17 09:00] Herbals/Supplements -Info Only 1 ea PO DAILY 12/01/17 [Last Taken Unknown] Ibuprofen [Motrin (*)] 200 mg PO DAILY PRN 12/01/17 [Last Taken 12/07/17] Multivitamins [Multivitamin (*)] 1 each PO DAILY 12/08/17 [Last Taken 12/01/17] [place]-3 Fatty Acids [Fish Oil 1000 mg (*)] 1,000 mg PO DAILY 12/08/17 [Last Taken 12/01/17] Vitamin B Complex [Vitamin B Complex (OTC)] 1 each PO DAILY 12/08/17 [Last Taken 12/01/17] Therapist Rrt Antibiotics: Cefazolin 6 g by continuous infusion Q 24 hr Alf Antibiotic Stop Date: 01/19/18 Discharge Medications: Refer to the Discharge Home Medication list for PRN reason. PICC Care - Routine: Yes - Labs/Radiology CBC w/diff Date: 12/15/17 (Weekly Q Friday) CMP Date: 12/15/17 (Weekly Q Friday) CRP Date: 12/15/17 (Weekly Q Friday) Call or Fax Lab and Imaging Results to: Dr. Wong, - Follow Up Care Current Providers and Referrals: Terry Wong MD [Medical Doctor] - NONE *PRIMARY CARE P,. [Primary Care Provider] - King Ponce MD [Medical Doctor] -
[2017-12-11] MEDS: IBUPROFEN 800 MG TAB PO SCH ×2 (05:30→13:55)
[2017-12-11] MEDS: ceFAZolin 2 GM/DEXTROSE 100 ML IV SCH ×2 (05:30→13:56)
[2017-12-11] MEDS: ENOXAPARIN 40 MG/0.4 ML SYR SC SCH (10:19)
[2017-12-11] MEDS: DOCUSATE SODIUM 100 MG CAP PO SCH (10:19)
--- NOTE | 2017-12-11 11:45 | PCMIDPN ---
Assessment/Plan: Assessment/Plan: * Left lower extremity postoperative infection due to MSSA status post hardware removal: Cultures today showing growth of Staphylococcus aureus with susceptibility pending. Suspect this will be MSSA based on prior history. Continue cefazolin with anticipated 6 week course of therapy. Begin discharge planning for outpatient IV antibiotic therapy. Risk and benefits of IV antibiotics and PICC line discussed with patient. 12/10/17 14:38 Subjective: Pt is sitting up in his bed this morning and had his wound vac removed. Dr. Wong notified him that his blood cultures are MSSA. Notes that he is still tolerating his Ancef abx well. Denies associated itching, rash, or diarrhea. When asked about his RUE PICC line he states that it is, feeling good, I cant even tell it is there. No new complaints at this time. I, Sandra Modi, am scribing for, and in the presence of, Dr. Terry Wong. I, Dr. Terry Wong, personally performed the services described in this documentation, as scribed by Sandra Modi in my presence, and it is both accurate and complete. Objective: Vital Signs Temp Pulse Resp BP Pulse Ox 36.4 C 68 12 107/62 94 12/11/17 07:57 12/11/17 07:57 12/11/17 07:57 12/11/17 07:57 12/11/17 07:57 Microbiology 12/08/17 16:08 Gram Stain - Final Knee - Eswab 12/08/17 16:30 Gram Stain - Final Knee - Tissue 12/08/17 16:08 Gram Stain - Final Knee - Eswab 12/10/17 12/11/17 12/12/17 05:59 05:59 05:59 Intake Total 2520 600 Output Total 2024 Balance 495 600 Cefazolin # 3 Operative cultures with MSSA - Physical Exam General Appearance: alert, no apparent distress EENT: other (moist mucous membranes), No scleral icterus, No thrush Respiratory: lungs clear Cardiac/Chest: regular rate, rhythm Extremities: other (1+ edema of LLE. L knee is still swollen, but less so than yesterday. No erythema over anterior knee. Surgical dressing in place, mild warmth. No pain in inguinal lymphatic distribution. ) Skin: No rash - Line/s RUE PICC Lines: No drainage, No erythema ICD10 Worksheet Patient Problems: Problems Problem Status Onset Septic arthritis Acute
[2017-12-11 12:57] LABS: PLATELET COUNT 207 10^3/uL (150-400)
--- NOTE | 2017-12-11 14:52 | SOAPPROG ---
SOAP Progress Note Assessment/Plan: Assessment 37 yo male, pod#3 s/p left knee hardware removal and medial/lateral wound vac placements -pain management significantly improved with flexeril 10mg 1 tab po q8h prn spasm, ibuprofen 800mg q8h, oxycodone 5-10 mg q4h prn pain -ID consult: IV final recs: cefazolin 2 grams q8h x6 weeks via picc, with follow up with dr. machuca in his office. -picc line: dressings c/d/i, no issues -pt/ot: continue full weight bearing and range of motion as tolerated by pain -dispo: discharge home today with home health for IV abx, patient will follow up with orthopedics next friday for wound check, sooner with issues, prescriptions for pain management in chart Subjective: Robi is postop day #3 from left knee hardware removal and wound VAC placement, he reports he slept very well last night, pain is significantly better controlled, using minimal narcotics, more Tylenol/ibuprofen/Flexeril for better pain relief. He denies any fevers or chills, denies chest pain, denies shortness of breath. reports swelling has been going down, he been walking without any problems or pain. Denies any falls or injuries, denies any numbness or tingling. Objective: LLE: dressings c/d/i, no surrounding erythema or discharge or signs of infection , loss of 4 degrees extension, flexino 4-140 with tightness at end range Vital Signs Temp Pulse Resp BP Pulse Ox 36.4 C 68 12 107/62 94 12/11/17 07:57 12/11/17 07:57 12/11/17 07:57 12/11/17 07:57 12/11/17 07:57 Microbiology 12/08/17 16:30 Gram Stain - Final Knee - Tissue 12/08/17 16:30 Mycobacterial Smear (ULYSSES) - Final Knee - Tissue 12/08/17 16:08 Gram Stain - Final Knee - Eswab 12/08/17 16:08 Gram Stain - Final Knee - Eswab Laboratory Results 12/11/17 12:45 12/11/17 12:45 12/10/17 12/11/17 12/12/17 05:59 05:59 05:59 Intake Total 2520 600 Output Total 2024 Balance 495 600 ICD10 Worksheet Patient Problems: Problems Problem Status Onset Septic arthritis Acute
--- NOTE | 2017-12-11 15:06 | PDIAF ---
- Diagnosis Diagnosis: Left knee hardware removal, septic arthritis Code Status: Full Code - Medication Management Discharge Medications: Medications to Continue on Transfer Herbals/Supplements -Info Only 1 ea PO DAILY 12/01/17 [Last Taken Unknown] Ibuprofen [Motrin (*)] 200 mg PO DAILY PRN 12/01/17 [Last Taken 12/07/17] Multivitamins [Multivitamin (*)] 1 each PO DAILY 12/08/17 [Last Taken 12/01/17] [place]-3 Fatty Acids [Fish Oil 1000 mg (*)] 1,000 mg PO DAILY 12/08/17 [Last Taken 12/01/17] Vitamin B Complex [Vitamin B Complex (OTC)] 1 each PO DAILY 12/08/17 [Last Taken 12/01/17] Cyclobenzaprine [Flexeril 10 MG (*)] 10 mg PO TID PRN #30 tab 12/11/17 [Last Taken Unknown] ceFAZolin 2 GM/DEXTROSE [Ancef 2 gm] 2 gm IV Q8HRS 42 Days bag 12/11/17 [Last Taken Unknown] oxyCODONE IR [Oxycodone Ir (*)] 5 - 10 mg PO Q4HRS PRN #30 tab 12/11/17 [Last Taken Unknown] Peanut Sheller Antibiotics: Cefazolin 6 g by continuous infusion Q 24 hr Peanut Sheller Antibiotic Stop Date: 01/19/18 Discharge Medications: Refer to the Discharge Home Medication list for PRN reason. PICC Care - Routine: Yes - Orders Services needed: Home Care, Registered Nurse Home Care Face to Face: I certify that this patient was under my care and that I had the required [id number] encounter meeting the encounter requirements on the discharge day. My findings support the fact that the patient is homebound as defined in Home Care Face to Face Continued: CMS Chapter 7 Medicare Benefits Manual 30.1.1 , The condition of the patient is such that there exists a normal inability to leave home and consequently, leaving home would require a considerable and taxing effort. Diet Recommendation: no restrictions on diet Diet Texture: Regular Texture Diet Additional Instructions: weight bearing as tolerated - Labs/Radiology CBC w/diff Date: 12/15/17 (Weekly Q Friday) CMP Date: 12/15/17 (Weekly Q Friday) CRP Date: 12/15/17 (Weekly Q Friday) Call or Fax Lab and Imaging Results to: Dr. Wong, - Follow Up Care Current Providers and Referrals: Terry Wong MD [Medical Doctor] - NONE *PRIMARY CARE P,. [Primary Care Provider] - King Ponce MD [Medical Doctor] - 3-5 days
[2017-12-11 15:19] VITALS: BP 100/61
--- NOTE | 2017-12-11 16:56 | ASMTLACE ---
LACE Length of stay for Answers: 4-6 days current admission Acuity / Level of Answers: Yes Care: Did the patient have an inpatient admission? Comorbidities - select Answers: Opioid dependence all that apply / Chronic pain # of Emergency department Answers: 0 visits in the last 6 months Social determinants Answers: Mental health diagnosis (anxiety, depression, pers onality disorders, etc.) Score: 14 Date Signed: 12/11/2017 04:55 PM Electronically Signed By:EUGENIE Menchaca
--- NOTE | 2017-12-11 16:59 | ASMTCMCOM ---
CM Note CM Note Notes: Pt medically stable for d/c home with [facility] Orders sent in [employer]. Date Signed: 12/11/2017 04:58 PM Electronically Signed By:EUGENIE Menchaca
--- NOTE | 2017-12-12 15:07 | ASDISCHSUM ---
Discharge Information Plan Status:IV ABX/Infusion Medically Cleared to Leave: Discharge Date:12/11/2017 04:21 PM D/C Disposition: ADT D/C Disposition:Home Health Service Projected Discharge Date:12/11/2017 11:00 AM Transportation at D/C: Discharge Delay Reason: Follow-Up Date:12/11/2017 11:00 AM Discharge Slot: Final Diagnosis: Placement Information Referral Type:Home Infusion Referral ID:[id number] Provider Name:[facility] [place] ([facility]) Address 1:[address] Address 2: City:[place] Selection Factors: State:[place] Referral Type:*Home Health Care Services Referral ID:[id number] Provider Name:[facility] Address 1:[address] [place] [address] [address] Address 2: City:[place] Selection Factors: State:[place] Patient Contact Information Contact Name:SHANEKA Relationship:Brother Address:[address] [place] City:[place] Alternate Phone: [facility]/Zip Code:[place] [address] Email: Financial Information Financial Class:[employer] Primary Plan Desc:GUI [employer] PPO Primary Plan Number:[id number] Secondary Plan Desc: Secondary Plan Number: Assessment Information LACE LACE Length of stay for Answers: 4-6 days current admission Acuity / Level of Answers: Yes Care: Did the patient have an inpatient admission? Comorbidities - select Answers: Opioid dependence all that apply / Chronic pain # of Emergency department Answers: 0 visits in the last 6 months Social determinants Answers: Mental health diagnosis (anxiety, depression, pers onality disorders, etc.) Score: 14 Date Signed: 12/11/2017 04:55 PM Electronically Signed By:EUGENIE Menchaca [facility] CM Progress Note CM Note CM Note Notes: Pt s/p hardware removal for infected knee. Wound vac placed, CM will need to know if pt has to d/c with [facility]. ID consulting. PT rec home, OT eval pending. CM to follow for d/c planning. Date Signed: 12/09/2017 12:54 PM Electronically Signed By:EUGENIE Menchaca [facility] CM Progress Note CM Note CM Note Notes: Pt will not d/c with wound vac, will need 6 weeks IV antibiotics. Referral sent to [facility] (pt has been on services with them in past). Gema with [facility] ran pt benefits and communicated with pt the cost expectation. Pt has picc. Plan for d/c tomorrow with [facility] and manager group home. Date Signed: 12/10/2017 04:14 PM Electronically Signed By:EUGENIE Menchaca [facility] CM Progress Note CM Note CM Note Notes: Pt medically stable for d/c home with [facility] and [employer] Orders sent in [employer] Date Signed: 12/11/2017 04:58 PM Electronically Signed By:EUGENIE Menchaca Intervention Information
--- NOTE | 2017-12-22 10:29 | GDS ---
[f rep st] DISCHARGE SUMMARY DIAGNOSES: 1. Painful hardware. 2. Infected hardware, tibia. HOSPITAL COURSE: Patient tolerated procedure well. Hardware removal. ID consult. Positive for Sta ph. Cefazolin 2 g recommended by Infectious Disease with Dr. Terry Wong. He had incisional VACs duri ng the hospital stay and was discharged. Patient to follow up with Orthopedics and Infectious Disedonavon montes /[id number]/MODL
== END 2017-12-11 16:21 | disposition home health service (06) | DRG 496 ==
LOC: F3N 13:21 → EDSTATUS 14:45 → OBSVTOIN 15:35 → F3N 19:28
PROVIDERS: ADMIT Orthopaedic Surgery; ATTEND Orthopaedic Surgery
PROC: BQ181ZZ Fluoroscopy of Left Knee using Low Osmolar Contrast (ICD-10-PCS; principal; 2017-12-08 15:00)
PROC: 0SSDXZZ Reposition Left Knee Joint, External Approach (ICD-10-PCS; principal; 2017-12-08 15:00)
PROC: 2W1RX6Z Compression of Left Lower Leg using Pressure Dressing (ICD-10-PCS; principal; 2017-12-08 15:00)
PROC: 0QPH04Z Removal of Internal Fixation Device from Left Tibia, Open Approach (ICD-10-PCS; principal; 2017-12-08 15:00)
PROC: 02HV33Z Insertion of Infusion Device into Superior Vena Cava, Percutaneous Approach (ICD-10-PCS; 2017-12-09)
DX: T84.7XXA Infection and inflammatory reaction due to other internal orthopedic prosthetic devices, implants and grafts, initial encounter (principal); T81.4XXA Infection following a procedure, initial encounter; B95.61 Methicillin susceptible Staphylococcus aureus infection as the cause of diseases classified elsewhere
CPT/HCPCS: 97161-GP; 97166-GO; C1751; J0690; J1170; J1650; J1885; J2250; J2270; J2405; J2704; J2765; J2780; J2795; J3010

== ENCOUNTER → 2018-04-12 | Outpatient (CLI) | payer OTHER | LOC: FIMAGING 11:26 | PROVIDERS: ATTEND Orthopaedic Surgery | DX: Z09 Encounter for follow-up examination after completed treatment for conditions other than malignant neoplasm (principal) ==